=== PATIENT | female | born 1990 | race Caucasian/White ===

== ENCOUNTER → 2019-08-15 14:22 | Outpatient (BNVA) | payer BC, SELFPAY | PROVIDERS: Family Provider Nurse Practitioner; PCP Nurse Practitioner; Referring Provider Family Medicine; Visit Provider Nurse Practitioner | DX: R05 Cough (principal); R50.9 Fever, unspecified; J45.909 Unspecified asthma, uncomplicated; J06.9 Acute upper respiratory infection, unspecified | CPT/HCPCS: 87804 ==

== ENCOUNTER → 2020-04-21 16:15 | Outpatient (BNVA) | payer OTHER, SELFPAY | PROVIDERS: Family Provider Nurse Practitioner; PCP Nurse Practitioner; Visit Provider Nurse Practitioner Family | DX: J06.9 Acute upper respiratory infection, unspecified (principal); Z20.828 Contact with and (suspected) exposure to other viral communicable diseases | CPT/HCPCS: 87635 ==

== ENCOUNTER 2022-08-17 13:01 | Outpatient (CLI) | payer OTHER, SELFPAY ==
--- NOTE | 2022-08-17 13:30 | US_ITS ---
WS: [id number] EARLY OBSTETRICAL ULTRASOUND (<14 WEEKS). HISTORY: RLQ pain COMPARISON: No recent exams. Single intrauterine gestational sac is identified. Cardiac activity at 73 BPM. [place]-rump length svetlana ures 0.4 cm which corresponds to a gestation of 6w1d. Normal-appearing yolk sac and amnion demonstrat ed. No subchorionic hemorrhage. No free fluid. RIGHT adnexal cystic mass measures 3.6 x 4.7 x 3.0 cm. Most consistent with a RIGHT ovarian cyst or c orpus luteum. Does appear associated with the ovary. Normal Doppler within the adjacent ovarian tissu e. US/US OB <=14 wk fetus w transvag IMPRESSION: 1. Single intrauterine gestation of 6 weeks 1 day with an EDC of 04/11/2023. 2. Cardiac activity is 73 bpm. Low normal cardiac activity for early gestation al age. 3. RIGHT adnexal cyst, probably ovarian measuring 3.6 x 4.7 x 3.0 cm.
== END 2022-08-17 13:02 | disposition home or self-care (01) ==
LOC: RAD 13:03
PROVIDERS: Family Provider Nurse Practitioner; PCP Clinical Nurse Specialist Adult Health; Visit Provider Clinical Nurse Specialist Adult Health
DX: R10.31 Right lower quadrant pain (principal)
CPT/HCPCS: 76801; 76817

== ENCOUNTER 2023-03-07 13:23 | Outpatient (CLI) | payer OTHER, SELFPAY ==
[2023-03-07 13:41] VITALS: PULSE 96; O2SAT 99
[2023-03-07 13:44] VITALS: BP 119/76; PULSE 88
[2023-03-07 13:45] VITALS: BMI 38.9
[2023-03-07 14:04] VITALS: BP 110/69; PULSE 83
[2023-03-07 14:25] VITALS: BP 115/77; PULSE 83
[2023-03-07 14:46] VITALS: BP 115/77; PULSE 83; RESP 16; TEMP 36.7
[2023-03-07 14:55] LABS: Nitrazine Paper, PH Negative
== END 2023-03-07 14:50 | disposition home or self-care (01) ==
LOC: OPOB 13:30 → OBGYN 13:31
PROVIDERS: Obstetrics & Gynecology; Family Provider Nurse Practitioner; PCP Clinical Nurse Specialist Adult Health; Visit Provider Obstetrics & Gynecology
DX: O26.899 Other specified pregnancy related conditions, unspecified trimester (principal); R42 Dizziness and giddiness; R25.2 Cramp and spasm; R11.0 Nausea; R00.0 Tachycardia, unspecified; Z3A.00 Weeks of gestation of pregnancy not specified
CPT/HCPCS: 59025; 83986; 99211

== ENCOUNTER → 2023-08-09 14:40 | Outpatient (BNVA) | payer OTHER, SELFPAY | PROVIDERS: Family Provider Nurse Practitioner; PCP Clinical Nurse Specialist Adult Health; Visit Provider Clinical Nurse Specialist Adult Health | DX: E66.01 Morbid (severe) obesity due to excess calories (principal); F53.0 Postpartum depression | CPT/HCPCS: 84436; 84443; 84481 ==

== ENCOUNTER → 2024-04-22 13:27 | Outpatient (BNVA) | payer OTHER, SELFPAY | PROVIDERS: Family Provider Nurse Practitioner; PCP Clinical Nurse Specialist Adult Health; Visit Provider Clinical Nurse Specialist Adult Health | DX: K64.9 Unspecified hemorrhoids (principal); Z98.84 Bariatric surgery status | CPT/HCPCS: 80053; 82607; 83540; 84207; 85025 ==

== ENCOUNTER → 2024-12-31 11:34 | Outpatient (BNVA) | payer OTHER, SELFPAY | PROVIDERS: Family Provider Nurse Practitioner; PCP Clinical Nurse Specialist Adult Health; Visit Provider Clinical Nurse Specialist Adult Health | DX: R10.31 Right lower quadrant pain (principal) | CPT/HCPCS: 81025 ==

== ENCOUNTER 2025-01-01 06:27 | Outpatient (CLI) | payer OTHER, SELFPAY ==
--- NOTE | 2025-01-01 06:30 | US_ITS ---
WS: [id number] Complete ABDOMINAL ULTRASOUND HISTORY: R10.9 - Unspecified abdominal pain COMPARISON: 02/02/2017 Liver: 14.3 cm in length. Normal size liver with mild coarse echotexture. No mass. Portal Vein: Normal hepatopetal flow with monophasic waveform. Gallbladder: Prior cholecystectomy. CBD: 0.6 cm Pancreas: Normal size and echogenicity. Right kidney: 10.4 cm x 6.1 x 5.0 cm. Cortex:1.4 cm. Normal size and echogenicity. No hydronephrosis or mass. Left kidney: 9.7 cm x 4.6 cm x 5.3 cm. Cortex: 1.4 cm. Normal size and echogenicity. No hydronephrosis or mass. Spleen: 9.3 cm. Normal size and echogenicity. Aorta and IVC: Unremarkable abdominal aorta and IVC. Superficial, subcutaneous hypervascular mass noted in the RIGHT lower quadrant. Mass measures 1.3 x 1.0 x 1.0 cm. There is increased vascularity. This is the area of pain. US/US abdomen complete* [id number] Impression: Normal complete abdomen ultrasound. Hypervascular mass in the subcutaneous soft tissues RIGHT lower quadrant measur es 1.3 x 1.0 x 1.0 cm. Very nonspecific appearance. This may represent an endom etrioma. Correlate with history of surgery in the pelvis and or increasing pain during menstruation. Alternative differential includes hemangioma or metastati c focus.
== END 2025-01-01 06:28 | disposition home or self-care (01) ==
PROVIDERS: Family Provider Nurse Practitioner; PCP Clinical Nurse Specialist Adult Health; Visit Provider Clinical Nurse Specialist Adult Health
DX: R10.9 Unspecified abdominal pain (principal); R19.03 Right lower quadrant abdominal swelling, mass and lump
CPT/HCPCS: 76700